=== PATIENT | male | born 1955 | race Caucasian/White ===

== ENCOUNTER 2017-09-16 19:30 | Emergency (ER) | payer BC ==
[~2017-09-16] VITALS: Ht 188 cm; Wt 106.6 kg
[~2017-09-16 19:30] MED LIST: ATEN-166 PO; LOSA1TAB15 PO
[2017-09-16 19:45] VITALS: BP_SYST 141
[2017-09-16] MEDS ORDERED: MEPERIDINE HCL/PF 25 MG/ML DISP.SYRIN IM ONE ×2 (21:15→22:15)
[2017-09-16] MEDS ORDERED: DIPHENHYDRAMINE INJ 50 MG/ML VIAL IM ONE (21:15)
[2017-09-16 22:54] VITALS: BP_SYST 135
== END 2017-09-16 22:54 | disposition home or self-care (01) ==
LOC: SED 19:30
DX: M54.30 Sciatica, unspecified side (principal); I10 Essential (primary) hypertension; F32.9 Major depressive disorder, single episode, unspecified; Z88.0 Allergy status to penicillin
CPT/HCPCS: 96372; 99284; J1200; J2175

== ENCOUNTER 2019-05-31 15:46 | Emergency (ER) | payer BC ==
[~2019-05-31] VITALS: Ht 185.4 cm; Wt 108.9 kg
[2019-05-31 15:54] VITALS: BP_SYST 155
--- NOTE | 2019-05-31 15:59 | NUR ---
Placed in room 02 . Placed on director of cardiac cath lab, blood pressure machine and pulse oximeter. To gown for exam. Side rails up.
--- NOTE | 2019-05-31 16:09 | NUR ---
Patient presents to ER C/O high Blood Pressure. Patient A&Ox4, skin pink and warm, ambulatory to ER, afebrile, denies N/V/D, pain 06/24. Patient states he has high BP, today hw was seen at PMD office BP:160/110, reffered to ER after several hours of high BP and PO meds Losartin 100 mg @ 0700 daily dose then metroprolol 100mg @1400. Patient states he has Hx depression, and sleep apnea and takes Androgel.
--- NOTE | 2019-05-31 16:40 | NUR ---
JUAN JOSE Rosenthal at bedside examining patient.
[2019-05-31] MEDS ORDERED: IBUPROFEN 400 MG TABLET PO ONE (17:00)
[2019-05-31] MEDS ORDERED: cloNIDine HCL 0.1 MG TABLET PO ONE (17:00)
[2019-05-31 18:13] VITALS: BP_SYST 146
--- NOTE | 2019-05-31 18:13 | NUR ---
Patient given written and verbal discharge instructions and verbalizes understanding. ER MD discussed with patient the results and treatment provided. Patient in stable condition. ID arm band removed. Rx of Clonidine given. Patient educated on pain management and to follow up with PMD. Pain Scale 2/10 tolerable for patient . Opportunity for questions provided and answered. Medication side effect fact sheet provided.
== END 2019-05-31 18:13 | disposition home or self-care (01) ==
LOC: SED 15:46
DX: I10 Essential (primary) hypertension (principal); R51 Headache; G47.30 Sleep apnea, unspecified; F32.9 Major depressive disorder, single episode, unspecified; Z88.0 Allergy status to penicillin
CPT/HCPCS: 99283

== ENCOUNTER 2021-01-14 00:28 | Emergency (ER) | payer BC, OTHER ==
[~2021-01-14] VITALS: Ht 185.4 cm; Wt 99.8 kg
[2021-01-14 00:45] VITALS: BP_SYST 133
--- NOTE | 2021-01-14 00:45 | NUR ---
Patient to ER bed 3. Side rails up.
--- NOTE | 2021-01-14 00:49 | NUR ---
DR. EL AT BEDSIDE FOR EVALUATION.
[2021-01-14] MEDS ORDERED: LIDOCAINE/EPI 1% 1:100000 20 ML VIAL INJ ONE (00:55)
[2021-01-14] MEDS ORDERED: LIDOCAINE VISCOUS 2%, 15 ML UDC MM ONE (01:00)
[2021-01-14] MEDS ORDERED: DIPH-TET-PERTUS Vaccine 0.5 ML VIAL (ADACEL) I.M. ONE (01:00)
--- NOTE | 2021-01-14 01:00 | NUR ---
PATIENT AAOX4 BIB BLS FROM HOME D/T LACERATION TO LEFT TRICEP, LEFT PALM, LEFT ELBOW. PT STATED THAT HE WAS DRINKING AT A HIS APPARTMENT AND FEEL INTO THE WINDOW AND SHATTERED THE WINDOW. PRESSURE APPLIED TO ACTIVE BLEEDING. PT DENIES ANY ANTICOAGULANT USE. VSS. CURRENTLY STATING 8/10 ON THE PAIN SCALE.
[2021-01-14] MEDS ORDERED: BACITRACIN 1 GM OINT TP ONE (01:30)
[2021-01-14] MEDS ORDERED: CEPH500C2 PO (01:35)
[2021-01-14 02:19] VITALS: BP_SYST 133
--- NOTE | 2021-01-14 02:19 | NUR ---
Patient given written and verbal discharge instructions and verbalizes understanding. DR. SIENNA INGRAM MD discussed with patient the results and treatment provided. Patient in stable condition. ID arm band removed. Rx of CEPHALEXIN given. Patient educated on pain management and to follow up with PMD. Pain Scale 0/10 Opportunity for questions provided and answered. Medication side effect fact sheet provided.
== END 2021-01-14 02:19 | disposition home or self-care (01) ==
LOC: SED 00:28
DX: S41.111A Laceration without foreign body of right upper arm, initial encounter (principal); S61.401A Unspecified open wound of right hand, initial encounter; Z20.822 Contact with and (suspected) exposure to COVID-19; W45.8XXA Other foreign body or object entering through skin, initial encounter; Y93.89 Activity, other specified; Y92.89 Other specified places as the place of occurrence of the external cause; Y99.8 Other external cause status
CPT/HCPCS: 12034; 90471; 90715; 99284; C9803; U0003